=== PATIENT | male | born 1945 | race Caucasian/White ===

== ENCOUNTER 2019-11-03 15:51 | Inpatient (IN) | payer MEDICARE ==
[~2019-11-03] VITALS: Ht 175.3 cm; Wt 85.0 kg
[2019-11-03] MEDS ORDERED: VANCOMYCIN 1 G PREMIX 200 ML IV ONE (18:15)
[2019-11-03] MEDS ORDERED: PIPERACILLIN/TAZ 3.375G PREMIX 50 ML IV ONE (18:15)
[2019-11-03 18:51] LABS: CHLORIDE 107 mEq/L (98-107)
[2019-11-03 18:52] LABS: HEMATOCRIT. 43.7 % (42.0-52.0); HEMOGLOBIN. 14.8 g/dL (14.0-18.0); MEAN CORPUSCULAR HEMOGLOBIN 31.5 pg (28.0-32.0); MEAN CORPUSCULAR VOLUME 92.6 fL (80.0-94.0); MEAN PLATELET VOLUME 10.6 fl (7.4-10.4); PLATELET 157 x1000/uL (130-400); RED BLOOD CELL COUNT 4.71 mill/uL (4.7-6.1); RED CELL DISTRIBUTION WIDTH 15.9 % (11.6-14.6)
[2019-11-03 18:56] LABS: C REACTIVE PROTEIN QUANT 2.5 mg/L (0.0-3.0); ETHANOL BLOOD < 10 mg/dL
[2019-11-03 18:58] LABS: INR 1.1; PROTHROMBIN TIME 11.5 sec (9.6-11.0)
[2019-11-03 19:00] LABS: CREATINE KINASE 111 IU/L (39-308)
[2019-11-03 19:03] LABS: CREATINE KINASE MB FRACTION 4.8 ng/mL (0.5-3.6)
[2019-11-03 19:15] LABS: PLATELET ESTIMATE NORMAL
[2019-11-03 21:40] VITALS: BP 171/85
[2019-11-03] MEDS ORDERED: ASPI-1497 PO (22:24)
[2019-11-03] MEDS ORDERED: ACETAMINOPHEN 325MG TABLET PO PRN (23:45)
[2019-11-03] MEDS ORDERED: CLONIDINE 0.1MG TABLET PO PRN (23:45)
[2019-11-04 00:23] VITALS: BP 168/85
[2019-11-04 04:00] VITALS: BP 136/77
[2019-11-04] MEDS: PIPERACILLIN/TAZOBACTAM 3.375 G in DEXT 5% WATER 100 ML IV SCH ×3 (05:50→17:47)
[2019-11-04 06:16] LABS: BASOPHILS % 0.6 % (0.0-2.0); EOSINOPHILS % 3.3 % (0.0-5.0); HEMATOCRIT. 43.4 % (42.0-52.0); HEMOGLOBIN. 15.2 g/dL (14.0-18.0); LYMPHOCYTES % 16.9 % (20.0-50.0); MEAN CORPUSCULAR HEMOGLOBIN 32.3 pg (28.0-32.0); MEAN CORPUSCULAR VOLUME 92.5 fL (80.0-94.0); MEAN PLATELET VOLUME 10.1 fl (7.4-10.4); MONOCYTES % 7.7 % (2.0-8.0); NEUTROPHILS % 71.5 % (40.0-76.0); PLATELET 157 x1000/uL (130-400); RED BLOOD CELL COUNT 4.69 mill/uL (4.7-6.1); RED CELL DISTRIBUTION WIDTH 15.8 % (11.6-14.6)
[2019-11-04 06:24] LABS: CHLORIDE 110 mEq/L (98-107)
[2019-11-04 08:00] VITALS: BP 134/74
[2019-11-04] MEDS ORDERED: VANCOMYCIN 1 G PREMIX 200 ML IV SCH (08:00)
[2019-11-04] MEDS: HEPARIN 5000 UNITS/ML VIAL SUBCUT SCH ×2 (08:49→21:20)
[2019-11-04] MEDS ORDERED: ASPIRIN 81MG EC TABLET PO NR (09:00)
[2019-11-04 12:00] VITALS: BP 150/78
[2019-11-04 15:47] VITALS: BP 150/78
[2019-11-04 20:46] VITALS: BP 164/85
[2019-11-04] MEDS: VANCOMYCIN 750 MG PREMIX 150 ML IV SCH (21:20)
[2019-11-05 00:05] VITALS: BP 155/77
[2019-11-05 04:18] VITALS: BP 127/63
[2019-11-05] MEDS: PIPERACILLIN/TAZOBACTAM 3.375 G in DEXT 5% WATER 100 ML IV SCH ×4 (06:00→11:55)
[2019-11-05 08:00] VITALS: BP 149/79
[2019-11-05 09:23] LABS: CHLORIDE 108 mEq/L (98-107)
[2019-11-05] MEDS: VANCOMYCIN 750 MG PREMIX 150 ML IV SCH (09:48)
[2019-11-05] MEDS: HEPARIN 5000 UNITS/ML VIAL SUBCUT SCH ×2 (09:49→20:27)
[2019-11-05 12:00] VITALS: BP 159/72
[2019-11-05 16:00] VITALS: BP 153/85
[2019-11-05] MEDS ORDERED: VANCOMYCIN 1 G PREMIX 200 ML IV SCH (17:00)
[2019-11-05 20:05] VITALS: BP 153/75
[2019-11-06] VITALS: BP 135/74
[2019-11-06 04:10] VITALS: BP 147/77
[2019-11-06 07:20] LABS: CHLORIDE 108 mEq/L (98-107)
[2019-11-06 08:00] VITALS: BP 107/65
[2019-11-06] MEDS: HEPARIN 5000 UNITS/ML VIAL SUBCUT SCH ×2 (08:39→21:00)
[2019-11-06 12:00] VITALS: BP 123/83
[2019-11-06 16:00] VITALS: BP 141/69
== END 2019-11-06 20:55 | disposition left against medical advice (07) | DRG 556 ==
LOC: ER 15:51 → 6WST 19:09 → EDBEDREQTM 19:15 → EDBEDREQSVC 19:15 → EDBEDREQ 19:15 → ENRESERV 21:02
PROVIDERS: ADMIT Internal Medicine; ATTEND Internal Medicine
DX: M62.81 Muscle weakness (generalized) (principal); E87.2 Acidosis; D72.829 Elevated white blood cell count, unspecified; I10 Essential (primary) hypertension; I25.10 Atherosclerotic heart disease of native coronary artery without angina pectoris; Z95.1 Presence of aortocoronary bypass graft; Z86.73 Personal history of transient ischemic attack (TIA), and cerebral infarction without residual deficits; Z79.82 Long term (current) use of aspirin; Z79.899 Other long term (current) drug therapy
CPT/HCPCS: 36415; 71045; 73650; 74018; 80048; 80053; 80202; 80320; 82550; 82553; 83605; 83735; 84145; 84484; 85025; 85651; 86140; 93005; 93923; 96365; 99285; J1644; J2543; J3370; J7060; G0480